=== PATIENT | male | born 1985 | race Two or more races ===

== ENCOUNTER 2016-05-26 15:33 | Emergency (ER) | payer OTHER ==
[2016-05-26] MEDS ORDERED: Ondansetron INJ* 2 MG/ML VIAL IV ONE (16:26)
[2016-05-26] MEDS ORDERED: NS 0.9% 1000 ML* 2,000 ML IV ONE (16:26)
[2016-05-26 16:41] LABS: Hematocrit 40 % (42-52); Hemoglobin 13.4 g/dl (14.0-18.0); Mean Corpuscular HGB Conc 33 g/dl (31-36); Mean Corpuscular Hemoglobin 30 pg (27-31); Mean Corpuscular Volume 89 fL (80-94); Mean Platelet Volume 9 um3 (7.4-10.4); Red Blood Count 4.52 10^6/ul (4.0-5.4); Red Cell Distribution Width 14 % (10.5-15); White Blood Count 9.6 10^3/ul (3.5-10.8)
[2016-05-26 16:58] LABS: Albumin 4.4 g/dL (3.2-5.2); BUN/Creatinine Ratio 14.5 (8-20); C Reactive Protein 3.45 mg/L (< 5.00); Calcium 9.2 mg/dL (8.6-10.3); EGFR African American 152.9 (>60); EGFR Non-African American 118.9 (>60); Globulin 2.7 g/dL (2-4); Potassium 3.7 mmol/L (3.5-5.0); Total Bilirubin 0.9 mg/dL (0.2-1.0); Total Protein 7.1 g/dL (6.4-8.9)
[2016-05-26 17:11] VITALS: BP 108/62
--- NOTE | 2016-05-26 17:24 | ED ---
Richard Swan Billy, scribed for Emanuel Lombardo MD on 05/26/16 at 1619 . Abdominal Pain/Male - HPI Summary HPI Summary: Patient is a 31 year-old male coming to [facility] for evaluation of abdominal pain, nausea, and diarrhea. He states that his symptoms began 4 days ago but gradually improved until 2 days ago, when the symptoms began to worsen again. Nothing makes his symptoms better or worse. He describes epigastric cramping and chills. Pain severity 3/10. Denies any blood in the stool. Denies any recent traveling or changes in diet. - History of Current Complaint Chief Complaint: EDAbdPain Stated Complaint: N/V/D Time Seen by Provider: 05/26/16 16:06 Hx Obtained From: Patient Onset/Duration: Gradual Onset, Lasting Days, Still Present Timing: Constant Severity Initially: Moderate Severity Currently: Moderate Pain Intensity: 3 Pain Scale Used: 0-10 Numeric Location: Epigastric Radiates: No Character: Cramping Aggravating Factor(s): Nothing Alleviating Factor(s): Nothing Associated Signs And Symptoms: Positive: Decreased Appetite, Nausea, Diarrhea. 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 Hx Chemotherapy: No - Surgical History Surgery Procedure, Year, 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 The skin is warm and dry and skin color reflects adequate perfusion. Decreased skin turgor. HEENT: The head is normocephalic and atraumatic. The pupils are equal and reactive. The conjunctivae are clear and without drainage. Nares are patent and without drainage. Mouth reveals dry mucous membranes and the throat is without erythema and exudate. The external ears are intact. The ear canals are patent and without drainage. The tympanic membranes are intact. Neck is supple with full range of motion and non-tender. There are no carotid bruits. There is no neck vein distension. Respiratory: Chest is non-tender. Lungs are clear to auscultation and breath sounds are symmetrical and equal. Cardiovascular: Heart is regular rate and rhythm. There is no murmur or rub auscultated. There is no peripheral edema and pulses are symmetrical and equal. Abdomen: The abdomen is soft. Epigastric tenderness without any RUQ tenderness. There are normal bowel sounds heard in all four quadrants and there is no organomegaly palpated. Musculoskeletal: There is no back pain noted. Extremities are non-tender with full range of motion. There is good capillary refill. There is no peripheral edema or calf tenderness elicited. Neurological: Patient is alert and oriented to person, place and time. The patient has symmetrical motor strength in all four extremities. Psychiatric: Mildly flat affect. Triage Information Reviewed: Yes Vital Signs On Initial Exam: Initial Vitals Temp Pulse Resp BP Pulse Ox 97.5 F 60 18 110/65 100 05/26/16 15:41 05/26/16 15:41 05/26/16 15:41 05/26/16 15:41 05/26/16 15:41 Vital Signs Reviewed: Yes Diagnostics - Vital Signs Vital Signs Temp Pulse Resp BP Pulse Ox 05/26/16 15:41 97.5 F 60 18 110/65 100 - Laboratory Lab Results: Lab Results 05/26/16 05/26/16 05/26/16 Range/Units 16:30 16:30 16:30 WBC 9.6 (3.5-10.8) 10^3/ul RBC 4.52 (4.0-5.4) 10^6/ul Hgb 13.4 L (14.0-18.0) g/dl Hct 40 L (42-52) % MCV 89 (80-94) fL MCH 30 (27-31) pg MCHC 33 (31-36) g/dl RDW 14 (10.5-15) % Plt Count 170 (150-450) 10^3/ul MPV 9 (7.4-10.4) um3 Neut % (Auto) 81.9 (38-83) % Lymph % (Auto) 8.4 L (25-47) % [place] % (Auto) 9.0 (1-9) % Eos % (Auto) 0.2 (0-6) % Baso % (Auto) 0.5 (0-2) % Absolute Neuts (auto) 7.9 H (1.5-7.7) 10^3/ul Absolute Lymphs (auto) 0.8 L (1.0-4.8) 10^3/ul Absolute Monos (auto) 0.9 H (0-0.8) 10^3/ul Absolute Eos (auto) 0 (0-0.6) 10^3/ul Absolute Basos (auto) 0.1 (0-0.2) 10^3/ul Absolute Nucleated RBC 0.01 10^3/ul Nucleated RBC % 0.1 Sodium 138 (133-145) mmol/L Potassium 3.7 (3.5-5.0) mmol/L Chloride 103 (101-111) mmol/L Carbon Dioxide 26 (22-32) mmol/L Anion Gap 9 (2-11) mmol/L BUN 11 (6-24) mg/dL Creatinine 0.76 (0.67-1.17) mg/dL Est GFR ( Amer) 152.9 (>60) Est GFR (Non-Af Amer) 118.9 (>60) BUN/Creatinine Ratio 14.5 (8-20) Glucose 90 (70-100) mg/dL Lactic Acid 0.9 (0.5-2.0) mmol/L Calcium 9.2 (8.6-10.3) mg/dL Total Bilirubin 0.90 (0.2-1.0) mg/dL AST 17 (13-39) U/L ALT 10 (7-52) U/L Alkaline Phosphatase 48 (34-104) U/L Total Creatine Kinase 69 (10-223) U/L C-Reactive Protein 3.45 (< 5.00) mg/L Total Protein 7.1 (6.4-8.9) g/dL Albumin 4.4 (3.2-5.2) g/dL Globulin 2.7 (2-4) g/dL Albumin/Globulin Ratio 1.6 (1-3) Lipase 37 (11.0-82.0) U/L Result Diagrams: 05/26/16 16:30 05/26/16 16:30 Lab Statement: Any lab studies that have been ordered have been reviewed, and results considered in the medical decision making process. Re-Evaluation - Re-Evaluation First Eval Re-Evaluation Time: 17:00 Change: Improved Comment: He is now able to tolerate liquids PO and wishes to be discharged home. Abdominal Pain Fem Course/Dx - Course Assessment/Plan: 31 y/o male coming to [facility] with nausea and diarrhea for 4 days. Patient states that he is primarily concerned about his nausea. He was given IV Zofran and oral fluids in the ED with improvement. On re-evaluation, he was tolerating fluids PO. He will be discharged home with Zofran and to follow up with PCP. - Diagnoses Provider Diagnoses: Dehydration, Gastroenteritis Discharge - Discharge Plan Condition: Stable Disposition: HOME Prescriptions: Ondansetron ODT TAB* [Zofran 4 MG Odt TAB*] 4 mg PO Q8H PRN #20 tab.odt PRN Reason: nausea Patient Education Materials: Gastroenteritis (ED), Dehydration (ED) Referrals: Rivas Flores MD [Primary Care Provider] - The documentation as recorded by the Richard segura Billy accurately reflects the service I personally performed and the decisions made by me, Emanuel Lombardo MD.
== END 2016-05-26 17:10 | disposition home or self-care (01) ==
LOC: ED 15:33
DX: K52.9 Noninfective gastroenteritis and colitis, unspecified (principal); E86.0 Dehydration; R10.9 Unspecified abdominal pain; R19.7 Diarrhea, unspecified; R11.0 Nausea; R68.83 Chills (without fever)
CPT/HCPCS: 36415; 80053; 82550; 83605; 83630; 83690; 85025; 86140; 87045; 87046; 87493; 87899; 96374; 99282; J2405

== ENCOUNTER 2016-10-07 10:22 | Emergency (ER) | payer OTHER ==
--- NOTE | 2016-10-07 11:37 | UC ---
Hand/Wrist HPI - HPI Summary HPI Summary: 31 year old male presents with complains right index finger . He has positive for Kanaval sign and I will send him to the ER for orthopedic consult. 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 - Family History Known Family History: Positive: None Negative: Cardiac Disease, Hypertension, Diabetes - Social History Alcohol Use: Weekly Substance Use Type: None, Prescribed Smoking Status (MU): Never Smoked Tobacco - Immunization History Most Recent Tetanus Shot: 2008 Review of Systems Constitutional: Negative Skin: Other - puncture wound right index finger Eyes: Negative ENT: Negative Respiratory: Negative Cardiovascular: Negative Gastrointestinal: Negative Genitourinary: Negative Motor: Negative Neurovascular: Negative Musculoskeletal: Negative Neurological: Negative Psychological: Negative All Other Systems Reviewed And Are Negative: Yes Physical Exam Triage Information Reviewed: Yes Vital Signs: Initial Vital Signs Temp 36.8 C 10/07/16 10:28 Pulse 63 10/07/16 10:28 Resp 16 10/07/16 10:28 Pulse Ox 100 10/07/16 10:28 Eye Exam: Normal ENT Exam: Normal Dental Exam: Normal Neck exam: Normal Neck: Positive: 1 Respiratory Exam: Normal Cardiovascular Exam: Normal Abdominal Exam: Normal Musculoskeletal Exam: Normal Neurological Exam: Normal Psychological Exam: Normal Skin Exam: Normal Skin: Positive: Other - right index finger puncture wound Hand/Wrist Course/Dx - Differential Dx/Diagnosis Provider Diagnoses: puncture wound right index finger Discharge - Discharge Plan Condition: Guarded Disposition: AGAINST MEDICAL ADVICE Referrals: Rivas Flores MD [Primary Care Provider] -
== END 2016-10-07 11:40 | disposition left against medical advice (07) ==
LOC: UCEAST 10:22
DX: S61.230A Puncture wound without foreign body of right index finger without damage to nail, initial encounter (principal); W29.4XXA Contact with nail gun, initial encounter
CPT/HCPCS: 99212; G0463

== ENCOUNTER 2016-10-07 12:01 | Emergency (ER) | payer OTHER ==
[2016-10-07 12:04] VITALS: BP 115/64
[2016-10-07] MEDS ORDERED: Ibuprofen TAB* 800 MG PO ONE (12:30)
[2016-10-07] MEDS ORDERED: Tetanus-Diptheria Toxoids* 0.5 ML SYRINGE IM ONE (12:57)
--- NOTE | 2016-10-07 13:11 | RAD ---
INDICATION: Male gun versus finger. Evaluate for foreign body at the distal interphalangeal joint. TECHNIQUE: 3 views of the left index finger were obtained. FINDINGS: The bones are normal alignment. Joint spaces appear maintained. No fracture is seen. No radiopaque subcutaneous foreign body is identified. IMPRESSION: NO RADIOGRAPHICALLY APPARENT ACUTE ABNORMALITY OF THE LEFT INDEX FINGER.
[2016-10-07] MEDS ORDERED: Cephalexin CAP* 500 MG PO ONE (13:47)
--- NOTE | 2016-10-07 14:36 | ED ---
Upper Extremity Pain - HPI Summary HPI Summary: Pt here w/ Lt finger puncture wound yesterday - was using a nail gun and accidentally struck himself. Removed nail w/o difficulty - minimal bleeding. Noticed swelling, pain and stiffness today so went to urgent care. Was sent here for fear of tendon injury - no meds, no XR. Pt's last tetanus vaccine was 2008. Denies numbness, tingling. Weakness is difficult to asses as he has pain w / flexion and full extension. - History of Current Complaint Chief Complaint: EDExtremityUpper Stated Complaint: LT HAND LAC/NAIL GUN Time Seen by Provider: 10/07/16 12:30 Hx Obtained From: Patient - Allergies/Home Medications Allergies/Adverse Reactions: Allergies Allergy/AdvReac Type Severity Reaction Status Date / Time No Known Allergies Allergy Verified 05/26/16 15:41 PMH/Surg Hx/FS Hx/Imm Hx Previously Healthy: Yes Endocrine/Hematology History: Denies: Hx Anticoagulant Therapy, Hx Blood Disorders, Hx Diabetes, Hx Systemic Lupus Erythematosus, Autoimmune Disease Cardiovascular History: Denies: Hx Congestive Heart Failure, Hx Hypertension History: Denies: Hx Dialysis, Hx Renal Disease Musculoskeletal History: Reports: Other Musculoskeletal History - myasthenia gravis Denies: Hx Rheumatoid Arthritis, Hx Osteoporosis - Cancer History Cancer Type, 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 Hx Chemotherapy: No - Surgical History Surgery Procedure, Year, and Place: 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 - Immunization History Immunizations Up to Date: No - tetanus 2009 Infectious Disease History: No Infectious Disease History: Reports: Traveled Outside the [place] in Last 30 Days - [place] Denies: Hx Clostridium Difficile, Hx Hepatitis, Hx Human Immunodeficiency Virus (HIV), Hx of Known/Suspected MRSA, Hx Shingles, Hx Tuberculosis, Hx Known/ Suspected VRE, Hx Known/Suspected VRSA, History Other Infectious Disease - Family History Known Family History: Positive: None Negative: Cardiac Disease, Hypertension, Diabetes - Social History Lives: With Family Alcohol Use: Weekly Substance Use Type: Reports: None, Prescribed Hx Tobacco Use: No Smoking Status (MU): Never Smoked Tobacco Review of Systems Constitutional: Negative Negative: Fever, Chills Musculoskeletal: Other - see HPI Skin: Other - see HPI Neurological: Other - see HPI Psychological: Normal All Other Systems Reviewed And Are Negative: Yes Physical Exam Triage Information Reviewed: Yes Vital Signs On Initial Exam: Initial Vitals Temp Pulse Resp BP Pulse Ox 98.8 F 67 18 115/64 98 10/07/16 12:02 10/07/16 12:02 10/07/16 12:02 10/07/16 12:02 10/07/16 12:02 Vital Signs Reviewed: Yes Appearance: Positive: Well-Appearing, No Pain Distress, Well-Nourished Skin: Positive: Warm, Dry - dry pinpoint area over dorsum of Lt index finger over middle phalanx - no drainage but there is edema w/ mild erythema and ecchymosis - TTP - no fluctuance, no streaking Head/Face: Positive: Normal Head/Face Inspection Eyes: Positive: EOMI ENT: Positive: Hearing grossly normal Respiratory/Lung Sounds: Positive: Breath Sounds Present Cardiovascular: Positive: Pulses are Symmetrical in both Upper and Lower Extremities Musculoskeletal: Positive: Limited @ - Lt index finger best at 5 degrees flexion - pain w/ active and passive extension and flexion - pt is limited w/ movement d/t pain and swelling - difficult to asses strength and he reports pain when asked to perform resisted ROM Neurological: Positive: Normal, Sensory/Motor Intact, Alert, Oriented to Person Place, Time, CN Intact II-III Psychiatric: Positive: Normal Procedures - Procedure Summary Procedure Summary: Wound soaked and attempted wound expression - scant serous d/c - no purulent drainage - dried, dressed with sterile bandaid and splinted. - Splinting Location: Lt index finger Pre-Made Type: metal Pre-Proc Neuro Vasc Exam: normal Post-Proc Neuro Vasc Exam: normal Diagnostics - Vital Signs Vital Signs Temp Pulse Resp BP Pulse Ox 10/07/16 12:02 98.8 F 67 18 115/64 98 - Laboratory Lab Statement: Any lab studies that have been ordered have been reviewed, and results considered in the medical decision making process. Re-Evaluation - Re-Evaluation First Eval Change: Improved - s/p ibuprofen and warm soapy soak Course/Dx - Course Course Of Treatment: No fx or retained FB on XR nor effusion/hemorrhage. Pt had mild relief w/ ibuprofen and soak. Spoke w/ ortho- soak and try to express fluid if possible. Advised soapy soaks 2 x day and keflex - RICE. If worse, f/u w/ hand specialist. Reviewed w/ pt as well as danger s/sx of when to return to ED. Pt agrees w/ plan. - Diagnoses Provider Diagnoses: Puncture wound of left index finger - Physician Notifications Discussed Care of Patient With: José Miguel Orellana Discharge - Discharge Plan Condition: Stable Disposition: HOME Prescriptions: Cephalexin CAP* [Keflex CAP*] 500 mg PO QID #39 cap Patient Education Materials: Puncture Wound (ED) Referrals: Maria Esther Sesay MD [Medical Doctor] - Additional Instructions: Rest, elevate, keep splint in place. If pain and swelling improve in next 1-2 days, may remove splint to asses range of motion and strength - if this has improved, wound will most likely heal on its own. If not improving, follow-up with orthopedics. Call this week to schedule an appointment - contact information included here. Ibuprofen with food for pain. Complete antibiotics. Soapy soaks 2x day - rinse well, dry with clean cloth then redress with clean gauze to collect drainage, protect wound - do not apply occlusive dressing (ie. antibiotic ointment) *If you develop redness, swelling, streaking, purulent drainage, worse pain, fever, chills return to ED
== END 2016-10-07 15:02 | disposition home or self-care (01) ==
LOC: ED 12:01
DX: S61.231A Puncture wound without foreign body of left index finger without damage to nail, initial encounter (principal); W29.4XXA Contact with nail gun, initial encounter; Y92.9 Unspecified place or not applicable; Z23 Encounter for immunization
CPT/HCPCS: 73140; 90471; 99283; A9270-GY

== ENCOUNTER 2019-04-28 11:58 | Emergency (ER) | payer OTHER ==
--- OUTSIDE RECORDS SUMMARY | 2019-04-28 12:06 | XMS REPORT | Continuity of Care Document ---
:1985 External Reference #:[id number] Author Name Rivas Flores MD Address [address] [place] [id number] Problems Active Problems Provider Date Myasthenia gravis Onset: 10/22/2014 Social History Type Date Description Comments Sex Unknown Tobacco Use Start: Unknown Patient has never smoked Allergies, Adverse Reactions, Alerts Description No Known Drug Allergies Medications Active Medications SIG Qnty Indications Ordering Provider Date Zofran Odt 1 every 6 20tabs Unknown 08/03/2016 4mg Tablets hours prn Oral Dispers Valacyclovir HCL Oral; Take 1 30tabs Unknown 12/16/2015 500mg Tablet By Mouth Tablets Every Day Mycophenolate Mofetil 1 daily Oral 30caps Unknown 09/06/2015 250mg Capsules Pyridostigmine Dougherty 0.5 three 30tabs Unknown 09/06/2015 60mg times each day Tablets prn Oral Immunizations CPT Code Status Date Vaccine Lot # [id number] Given 02/17/2019 Tdap - Boostrix/Adacel [id number] Given 2019 Flu < 65 years [id number] Given 01/09/2018 Flu < 65 years 71065 Given 12/12/2016 Flu < 65 years 74120 Given 01/10/2016 Flu < 65 years 36876 Given 04/28/2015 Flu < 65 years Vital Signs Date Vital Result Comment 02/17/2019 3:03pm BP Systolic 110 mmHg BP Diastolic 56 mmHg Weight 162.00 lb Heart Rate 58 /min Body Temperature 97.4 F O2 % BldC Oximetry 98 % 01/01/2018 10:06am BP Systolic 110 mmHg Height 71.00 inches 5'11.00" Weight 154.00 lb Heart Rate 61 /min Body Temperature 98.0 F O2 % BldC Oximetry 99 % BMI (Body Mass Index) 21.48 kg/m2 Results Test Acquired Date Facility Test Result H/L Range Note Laboratory test 02/26/2019 [facility] Non-Supply Controller SEE RESULT [address] Cytology Order BELOW [place], [place] [id number] [phone] 1 SEE RESULT BELOW Name: PB LEWIS : [address]: Rivas Flores MD Acct: [id number] Unit: [id number] AGE: 34 Location: Re02/26/19 SEX: M Status: REG REF SPEC: [id number] JR: 02/26/19 [facility] DR: Rivas Flores MD REQ: [id number] RECD: 02/26/19 STATUS: LEON TORRES DR: Billy Amaya MD _ ORDERED: FNA-IMG GUID BX, LEVEL 4, CYTO ADEQ-1ST P FINAL DIAGNOSIS Thyroid, right, ultrasound guided fine needle aspiration: --Benign thyroid nodule, colloid/hyperplastic type ([place] Class II). The specimen demonstrates moderate watery colloid, a moderate amount of benign appearing follicular epithelium arranged in uniform sheets, medium sized follicles and only occasional small groups. No features of papillary carcinoma are seen. In this clinical setting the risk of malignancy is less than 3%. Clinical management of this thyroid nodule should be based on clinical and radiographic features as well as the above. A cell block was prepared in the evaluation of this specimen. Smears and cell block reveal similar findings. CONTINUED ON NEXT PAGE DEPARTMENT OF PATHOLOGY, [address] [place] [id number] Demarco Simon M.D. Director [facility] # [id number] SPECIMEN(S) RECEIVED THYROID RIGHT - US GUIDED FINE NEEDLE ASPIRATION CLINICAL HISTORY Right thyroid nodule IMMEDIATE INTERPRETATION Pass 1-adequate GROSS DESCRIPTION Ultrasound guided fine needle aspiration x 1 pass with 10 alcohol fixed slides and needle rinse in formalin for cell block. Signed by and Reported on: Teri Concepcion MD 02/27/19 1032 END OF REPORT DEPARTMENT OF PATHOLOGY, [facility] [address] [place] [address] Demarco Simon M.D. Director [facility] # [id number] Procedures Date Code Description Status 02/17/2019 24221 Brief Emotional/Behav Assessment W/ Scoring Doc Per Completed Standard Inst Medical Devices Description No Information Available Encounters Type Date Location Provider Dx Diagnosis Office Visit 02/17/2019 3:00p [facility] Rivas Flores MD E04.1 Nontoxic single thyroid nodule Assessments Date Code Description Provider 02/17/2019 E04.1 Nontoxic single thyroid nodule Rivas Flores MD 2019 Z23 Encounter for immunization Susi Lyon MD Plan of Treatment No Information Available Functional Status Description No Information Available Mental Status Description No Information Available Referrals Refer to Reason for Referral Status Appt Date Patient's, Choice > 2cm low risk thyroid nodule Sent
[2019-04-28 12:16] VITALS: BP 112/64
[2019-04-28 12:40] LABS: Influenza A Molecular Negative (Negative); Influenza B Molecular Negative (Negative)
--- NOTE | 2019-05-05 22:27 | UC ---
Respiratory Complaint HPI - HPI Summary HPI Summary: ONSET LAST NIGHT OF SUBJECTIVE FEVER/CHILLS, JIN, ST, EAR PAIN, MILD COUGH AND CONGESTION. - History of Current Complaint Chief Complaint: UCGeneralIllness Stated Complaint: FEVER COUGH BODYACHES Time Seen by Provider: 04/28/19 12:16 Hx Obtained From: Patient Onset/Duration: Gradual Onset, Lasting Hours, Still Present Timing: Constant Severity Initially: Moderate Severity Currently: Moderate Pain Intensity: 2 Pain Scale Used: 0-10 Numeric Character: Cough: Nonproductive Aggravating Factors: Nothing Alleviating Factors: Nothing Associated Signs And Symptoms: Positive: URI, Nasal Congestion. Negative: Dyspnea, Wheezing - Allergies/Home Medications Allergies/Adverse Reactions: Allergies Allergy/AdvReac Type Severity Reaction Status Date / Time No Known Allergies Allergy Verified 04/28/19 12:16 Home Medications: Home Medications Mycophenolate Mofetil TAB(*) [Cellcept TAB(*)] 1,000 mg PO BID 03/23/15 [ History Confirmed 04/28/19] Pyridostigmine TAB* [Mestinon TAB*] 60 mg PO QID PRN 03/23/15 [History Confirmed 04/28/19] ValACYclovir (*) 500 ml PO DAILY PRN 10/17/15 [History Confirmed 04/28/19] Ibuprofen TAB* [Advil TAB*] 400 mg PO ONCE PRN 02/25/16 [History Confirmed 04/28] oxyCODONE SR TAB(*) [Oxycontin 10 mg (*)] 10 mg PO Q4H 04/28/19 [History Confirmed 04/28/19] PMH/Surg Hx/FS Hx/Imm Hx Other Cancer History: THYMUS CANCER Other History Of: Negative For: Anticoagulant Therapy - Surgical History Surgical History: Yes Surgery Procedure, Year, and Place: 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-INTERNAL [facility] /[facility] IN [place] - Family History Known Family History: Positive: None Negative: Cardiac Disease, Hypertension, Diabetes - Social History Alcohol Use: Weekly Substance Use Type: None Smoking Status (MU): Never Smoked Tobacco - Immunization History Most Recent Tetanus Shot: 2008 Review of Systems All Other Systems Reviewed And Are Negative: Yes Constitutional: Positive: Fever - SUBJECTIVE, Chills, Fatigue ENT: Positive: Sore Throat, Ear Ache, Nasal Discharge Respiratory: Positive: Cough Cardiovascular: Positive: Negative Gastrointestinal: Positive: Negative Neurological/Mental Status: Positive: Headache Physical Exam Triage Information Reviewed: Yes Appearance: No Pain Distress, Well-Nourished, Ill-Appearing - FATIGUED Vital Signs: Initial Vital Signs Temp 99.0 F 04/28/19 12:11 Pulse 79 04/28/19 12:11 Resp 20 04/28/19 12:11 BP 112/64 04/28/19 12:11 Pulse Ox 95 04/28/19 12:11 Laboratory Tests 04/28/19 12:28 Influenza A (Rapid) Negative Influenza B (Rapid) Negative Vital Signs Reviewed: Yes Eyes: Positive: Conjunctiva Clear ENT: Positive: Hearing grossly normal, Pharynx normal, TMs normal Neck: Positive: Supple, Nontender, No Lymphadenopathy Respiratory Exam: Normal Cardiovascular Exam: Normal Abdomen Description: Positive: Soft Musculoskeletal: Positive: No Edema Neurological: Positive: Alert Psychological: Positive: Age Appropriate Behavior Skin: Negative: Rashes Respiratory Course/Dx - Course Course Of Treatment: FLU SWAB NEGATIVE. LIKELY VIRALLY MEDIATED SX THAT SHOULD RESOLVE ON THEIR OWN WITH TIME. REST, HYDRATE, OTC MEDS NEEDED. F/U IF NOT IMPROVING EXPECTED. - Differential Dx/Diagnosis Provider Diagnosis: Acute viral syndrome Discharge ED - Sign-Out/Discharge Documenting (check all that apply): Patient Departure All imaging exams completed and their final reports reviewed: No Studies - Discharge Plan Condition: Stable Disposition: HOME Patient Education Materials: Viral Syndrome (ED) Referrals: Rivas Flores MD [Primary Care Provider] - If Needed Additional Instructions: FLU SWAB NEGATIVE. YOUR SYMPTOMS ARE LIKELY VIRALLY MEDIATED AND SHOULD RESOLVE ON THEIR OWN WITH TIME. NO INDICATION FOR ANTIBIOTICS AT PRESENT. REST, HYDRATE , OTC MEDS NEEDED. SEEK FOLLOW-UP IF YOU ARE NOT IMPROVING OVER THE NEXT 1-2 WEEKS. - Billing Disposition and Condition Condition: STABLE Disposition: Home
== END 2019-04-28 13:11 | disposition home or self-care (01) ==
LOC: UCEAST 11:58
DX: B34.9 Viral infection, unspecified (principal)
CPT/HCPCS: 99211; G0463